=== PATIENT | female | born 1960 | race Caucasian/White ===

== ENCOUNTER 2016-08-02 10:32 | Emergency (ER) | payer SELFPAY ==
[~2016-08-02 10:32] MED LIST: Sodium Chloride 0.9% 1,000 ML BAG ONE
--- NOTE | 2016-08-02 11:27 | RAD ---
SINGLE VIEW OF THE CHEST: COMPARISON: None. HISTORY: Abdominal pain. FINDINGS: Single view of the chest shows a normal sized cardiomediastinal silhouette. There is no evidence of consolidation, mass, or pleural effusion. The bones are unremarkable. IMPRESSION: No evidence of acute cardiopulmonary disease. POS: [facility]
[2016-08-02] MEDS ORDERED: Ondansetron HCl/PF 4 MG/2 ML Vial ONE (11:42)
[2016-08-02] MEDS ORDERED: Metoclopramide HCl 10 MG/2 ML VIAL ONE (11:42)
[2016-08-02] MEDS ORDERED: Ketorolac Tromethamine 30 MG/ML VIAL ONE (11:42)
[2016-08-02 11:59] LABS: ALT (SGPT) 90 U/L (0-55); AST (SGOT) 90 U/L (5-34); Albumin 3.6 g/dL (3.5-5.0); Alkaline Phosphatase 147 U/L (40-150); Amylase 47 U/L (25-125); Anion Gap 17 mmol/L (10-20); BUN (Urea Nitrogen) 11 mg/dL (9.8-20.1); Band 13 % (5-11); Bilirubin, Total 0.7 mg/dL (0.2-1.2); Calc. Creatinine Clearance 0 mL/min (70-130); Calcium 8.7 mg/dL (7.8-10.44); Carbon Dioxide 24 mmol/L (22-29); Chloride 92 mmol/L (98-107); Estimated GFR-MDRD Greater than 90; Globulin 3.3 g/dL (2.4-3.5); Glucose 113 mg/dL (70-105); Lipase 19 U/L (8-78); Lymphocytes 10 % (21-51); MDiff Complete? YES; Mean Corpuscular HGB CONC 33.9 g/dL (32.0-36.0); Mean Corpuscular Hemoglobin 30.6 pg (27.0-31.0); Mean Corpuscular Volume 90.1 fl (81.0-99.0); Monocytes 16 % (0-10); Neutrophil 61 % (42-75); PLT Morphology Comment Appears Adequate; Platelet Count 174 thou/uL (130-400); Potassium 4.1 mmol/L (3.5-5.1); Protein, Total 6.9 g/dL (6.0-8.3); RBC Distribution Width 11.4 % (11.5-14.5); Red Blood Cell (RBC) Count 4.92 mill/uL (4.20-5.40); Sodium 129 mmol/L (136-145); White Blood Cell (WBC) Count 8.6 thou/uL (4.8-10.8)
[2016-08-02 12:21] LABS: Bilirubin Negative (Negative); Blood, Urine Trace (Negative); Clarity Clear (Clear); Glucose, Urine (Dipstick) Negative (Negative); Leukocyte Trace (Negative); Nitrite Positive (Negative); Protein, Urine (Dipstick) 30 mg/dL (Neg-Trace); Urobilinogen 0.2 mg/dL (0.2-1.0)
[2016-08-02 12:24] LABS: Bacteria/HPF 4+ HPF (None Seen); Squamous Epithelial 0-3 HPF (0-3)
[2016-08-02] MEDS ORDERED: Sulfameth/Trimethoprim DS 800-160mg TAB ONE (12:48)
--- NOTE | 2016-08-02 14:20 | PICIS ---
[facility] EMERGENCY RECORD TRIAGE (TueAug 02, 2016 10:43 JPER) PATIENT: NAME: Priyanka Mccauley, AGE: 56, GENDER: female, : Sun 1960, TIME OF GREET: TueAug 02, 2016 10:33, RACE: C, ECODE BILLING MAP: [facility], SSN: [id number], Zip Code: [address], KG WEIGHT: 55.34, , , PERSON ID: [id number], PCP: DO Garza Hillary. (TueAug 02, 2016 10:43 JPER) PHONE: . (12:04) COMPLAINT: SHARP HEAD & ABDOMINAL PAIN,NOT EATING. (TueAug 02, 2016 10:43 JPER) ADMISSION: URGENCY: 3 Urgent, ADMISSION SOURCE: Home, TRANSPORT: Walk-in, BED: ED -05. (TueAug 02, 2016 10:43 JPER) ASSESSMENT: Assessment: HEADACHE X 3 DAYS; NAUSEA; LEFT LOWER BACK PAIN. (TueAug 02, 2016 10:43 JPER) IMMUNIZATIONS: Flu vaccine not up to date, Tetanus not up to date, Pneumococcal vaccine not up to date. (TueAug 02, 2016 10:43 JPER) SIRS SCORING: Heart Rate 55-109 (0), Temp range 96.8-101.1 (0), respiratory rate 12-24 (0), Mental Status altered: no (0). (TueAug 02, 2016 10:43 JPER) TRIAGE SCREENING: Patient denies suicidal ideation, Patient denies presence of domestic violence. (TueAug 02, 2016 10:43 JPER) PROVIDERS: TRIAGE NURSE: Christie Rick RN. (TueAug 02, 2016 10:43 JPER) VITAL SIGNS: BP 118/70, Pulse 84, Resp 20, Temp 98.2, (Oral), O2 Sat 97, on Room Air, Time 08/02/2016 10:39. (10:39 JPER) KNOWN ALLERGIES No Known Drug Allergies CURRENT MEDICATIONS (10:44 JPER) Valium: TABLET : Strength - 2 mg : ORAL Patient Dose: 2 times a day (before meals). hyoscyamine: TABLET : Strength - 0.15 mg : ORAL Patient Dose: 0.125 every 4 hours prn. VITAL SIGNS (10:39 JPER) VITAL SIGNS: BP: 118/70, Pulse: 84, Resp: 20, Temp: 98.2 (Oral), O2 sat: 97 on Room Air, Time: 08/02/2016 10:39. NURSING ASSESSMENT: ABDOMEN (10:50 JPER) CONSTITUTIONAL: Patient arrives, via hospital wheelchair, Gait steady, History obtained from patient, Patient appears, cachectic, Patient cooperative, Patient alert, Oriented to person, place and time, Skin warm, Skin dry, Skin normal in color, Mucous membranes pink, Mucous membranes moist, Patient, Patient complains of ABDOMINAL PAIN / HEADACHE. PAIN: aching pain, burning pain, &a-1R&a+25V*p+0X*x1015H*c202B*c15G*c2P*p-0X&a-25V&a+1R Name: Priyanka Mccauley : 1960 F56 MedRec: [id number] AcctNum: [id number] Prepared: TueAug 02, 2016 14:29 by Interface Page 1 of 11 pMD [facility] EMERGENCY RECORD diffusely. ABDOMEN: Abdomen soft, Associated with nausea. GENITOURINARY FEMALE: Notes: DEFERRED; UA REQUESTED. NOTES: Emotional support needed and given, Patient tolerated procedure well. NURSING PROCEDURE: DISCHARGE NOTE (13:45 MDEB) DISCHARGE: Patient discharged to home, ambulating without assistance, family driving, accompanied by //partner, Summary of Care printed/ provided, Patient requested and was provided an electronic copy of Discharge Instructions, Transition record given to patient, Simple or moderate discharge teaching performed, F/U APPT MEDICATIONS, Prescriptions given and instructions on side effects given, Above person(s) verbalized understanding of discharge instructions and follow-up care, Patient treated and evaluated by physician. BELONGINGS: Belongings remain with patient, Valuables remain with patient. NOTES: Emotional support needed and given, Patient tolerated procedure well. SAFETY: Side rails up, Cart/Stretcher in lowest position, Family at bedside, Call light within reach, Hospital ID band on. NURSING PROCEDURE: IV (11:20 AWAT) PATIENT IDENITIFIER: Patient actively involved in identification process, Patient's identity verified by patient stating name, Patient's identity verified by patient stating date, Patient's identity verified by hospital ID bracelet, Patient's identity verified by family member. IV SITE 1: IV therapy indicated for hydration, IV therapy indicated for medication administration, IV established, to the right forearm, using a 20 gauge catheter, in one attempt, IV site prepped with chloraprep, Saline lock established, Flushed with normal saline (mls): 10, Labs drawn at time of placement, labeled in the presence of the patient and sent to lab, Blood cultures drawn at time of placement, labeled in the presence of the patient and sent to lab. FOLLOW-UP SITE 1: After procedure, sterile transparent dressing applied. NOTES: Patient tolerated procedure well. SAFETY: Side rails up, Cart/Stretcher in lowest position, Family at bedside, Call light within reach, Hospital ID band on, Physician notified of above findings. NURSING PROCEDURE: URINE COLLECTION (12:00 JENI) PATIENT IDENTIFIER: Patient actively involved in identification process, Patient's identity verified by patient stating name, Patient's identity verified by hospital ID braceltuyet. URINE COLLECTION FEMALE: Simple anderson inserted, using an 8 fr catheter, in one attempt, output amount (mL) 100 ML, urine yellow in &a-1R&a+25V*p+0X*j4267C*c202B*c15G*c2P*p-0X&a-25V&a+1R Name: Priyanka Mccauley : 1960 F56 MedRec: [id number] AcctNum: [id number] Prepared: TueAug 02, 2016 14:29 by Interface Page 2 of 11 D [facility] EMERGENCY RECORD color, and clear. NOTES: Emotional support needed and given, Patient tolerated procedure well. ORDER DETAILS Order Name: Amylase, Status: Active, Time: 10:57 08/02/2016, User: FERNANDO, - Ordered for: MD Viera Lloyd, - Entered by: MD Viera Lloyd - TueAug 02, 2016 10:57, - Quantity: 1, Order Name: [facility], Status: Done, Time: 11:08 08/02/2016, User: MANAN, - Ordered for: MD Viera Lloyd, - Entered by: MD Viera Lloyd - TueAug 02, 2016 10:57, - Quantity: 1, Order Name: CBC with Differential, Status: Active, Time: 10:57 08/02/2016, User: FERNANDO, - Ordered for: MD Viera Lloyd, - Entered by: MD Viera Lloyd - TueAug 02, 2016 10:57, - Quantity: 1, Order Name: Comprehensive Metabolic Panel, Status: Active, Time: 10:57 08/02/2016, User: FERNANDO, - Ordered for: MD Viera Lloyd, - Entered by: MD Viera Lloyd - TueAug 02, 2016 10:57, - Quantity: 1, Order Name: Culture, Urine, Status: Active, Time: 10:57 08/02/2016, User: FERNANDO, - Ordered for: MD Viera Lloyd, - Entered by: MD Viera Lloyd - TueAug 02, 2016 10:57, - Quantity: 1, Order Name: Lipase, Status: Active, Time: 10:57 08/02/2016, User: FERNANDO, - Ordered for: MD Viera Lloyd, - Entered by: MD Viera Lloyd - TueAug 02, 2016 10:57, - Quantity: 1, Order Name: SALINE LOCK, Status: Done, Time: 11:34 08/02/2016, User: CLARI, - Ordered for: MD Viera Lloyd, - Entered by: MD Viera Lloyd - TueAug 02, 2016 10:57, - Quantity: 1, Order Name: Urinalysis with Microscopic, Status: Active, Time: 10:57 08/02/2016, User: FERNANDO, - Ordered for: MD Viera Lloyd, - Entered by: MD Viera Lloyd - TueAug 02, 2016 10:57, - Quantity: 1, Order Name: XR Chest 1 View Portable, Status: Active, Time: 11:00 08/02/2016, User: FERNANDO, - Ordered for: MD Viera Lloyd, - Entered by: MD Viera Lloyd - TueAug 02, 2016 11:00, - Quantity: 1. &a-1R&a+25V*p+0X*r9638J*c202B*c15G*c2P*p-0X&a-25V&a+1R Name: Priyanka Mccauley : 1960 F56 MedRec: [id number] AcctNum: [id number] Prepared: TueAug 02, 2016 14:29 by Interface Page 3 of 11 pMD [facility] EMERGENCY RECORD MEDICATION ADMINISTRATION SUMMARY Drug Name: Duramorph (PF), Dose Ordered: 4 mg, Route: IV Push, Status: Given, Time: 12:50 08/02/2016, Drug Name: Septra DS, Dose Ordered: 1 tab(s), Route: Oral, Status: Given, Time: 12:50 08/02/2016, Drug Name: Zofran intravenous, Dose Ordered: 8 mg, Route: IV Push, Status: Given, Time: 11:43 08/02/2016, Drug Name: Toradol injection, Dose Ordered: 30 mg, Route: IV Push, Status: Given, Time: 11:42 08/02/2016, Drug Name: Octamide, Dose Ordered: 20 mg, Route: Oral, Status: Given, Time: 11:40 08/02/2016, Drug Name: *sodium chloride 0.9 % intravenous, Dose Ordered: 1 L, Route: IV Fluid Infusion, Status: Given, Time: 11:20 08/02/2016, *Additional information available in notes, Detailed record available in Medication Service section. MEDICATION SERVICE Duramorph (PF): Order: Duramorph (PF) (morphine sulfate/preservative free) - Dose: 4 mg : IV Push Schedule: Now Ordered by: Donald Viera MD Entered by: Donald Viera MD TueAug 02, 2016 12:45 , Acknowledged by: Trish Morales RN TueAug 02, 2016 12:47 Documented as given by: Trish Morales RN TueAug 02, 2016 12:50 Patient, Medication, Dose, Route and Time verified prior to administration. Amount given: 4 MG, IV SITE #1 IVP, initial medication, Slowly, Catheter placement confirmed via flush prior to administration, IV site without signs or symptoms of infiltration during medication administration, No swelling during administration, No drainage during administration, IV flushed after administration, Correct patient, time, route, dose and medication confirmed prior to administration, Patient advised of actions and side-effects prior to administration, Allergies confirmed and medications reviewed prior to administration, Patient in position of comfort, Side rails up, Cart in lowest position, Family at bedside. Octamide: Order: Octamide (metoclopramide HCl) - Dose: 20 mg : Oral Schedule: Now Ordered by: Donald Viera MD Entered by: Donald Viera MD TueAug 02, 2016 11:02 Documented as given by: Trish Morales RN TueAug 02, 2016 11:40 Patient, Medication, Dose, Route and Time verified prior to administration. Amount given: 20 mg, Site: Medication administered P.O., Correct patient, time, route, dose and medication confirmed prior to administration, Patient advised of actions and side-effects prior to administration, Allergies confirmed and medications reviewed prior to &a-1R&a+25V*p+0X*y2900W*c202B*c15G*c2P*p-0X&a-25V&a+1R Name: Priyanka Mccauley : 1960 F56 MedRec: [id number] AcctNum: [id number] Prepared: TueAug 02, 2016 14:29 by Interface Page 4 of 11 pMD [facility] EMERGENCY RECORD administration, Patient in position of comfort, Side rails up, Cart in lowest position, Family at bedside. Septra DS: Order: Septra DS (sulfamethoxazole/trimethoprim) - Dose: 1 tab(s) : Oral Schedule: Now Ordered by: Donald Viera MD Entered by: Donald Viera MD TueAug 02, 2016 12:29 , Acknowledged by: Trish Morales RN TueAug 02, 2016 12:47 Documented as given by: Trish Morales RN TueAug 02, 2016 12:50 Patient, Medication, Dose, Route and Time verified prior to administration. Amount given: 1 TAB, Site: Medication administered P.O., Correct patient, time, route, dose and medication confirmed prior to administration, Patient advised of actions and side-effects prior to administration, Allergies confirmed and medications reviewed prior to administration, Patient in position of comfort, Side rails up, Cart in lowest position, Family at bedside. sodium chloride 0.9 % intravenous: Order: sodium chloride 0.9 % intravenous (0.9 % sodium chloride) - Dose: 1 L : IV Fluid Infusion Notes: (Bolus) after bolus run NS at 250 ml/h for 2nd liter, then lock Ordered by: Donald Viera MD Entered by: Donald Viera MD TueAug 02, 2016 11:04 Documented as given by: Philip Pruitt RN TueAug 02, 2016 11:20 Patient, Medication, Dose, Route and Time verified prior to administration. Amount given: 1L, IV SITE #1 IV fluids established for hydration, IV SITE #1 into right forearm, IV SITE #1 1st bag hung, amount 1 Liter hung, IV SITE #1 bolus of 1000 ml established, IV SITE #1 Rate of bolus, wide open, IV SITE #1 After bolus completed rate changed to 250 ml/hr, via primary tubing, Catheter placement confirmed via flush prior to administration, IV site without signs or symptoms of infiltration during medication administration, No swelling during administration, No drainage during administration, IV flushed after administration, Correct patient, time, route, dose and medication confirmed prior to administration, Patient advised of actions and side-effects prior to administration, Allergies confirmed and medications reviewed prior to administration, Administered by AWATERS, Patient in position of comfort, Side rails up, Cart in lowest position, Family at bedside. : Follow Up : _IV SITE #1:_, IV fluid infusion discontinued, on TueAug 02, 2016 12:00, 40 minutes, ., Total amount infused: 1000 ML, 2ND LITER HUNG AT 250 ML/HR STOP TIME FOR 2ND LITER AT 13:35 - 400 ML. (13:40 JENI) Toradol injection: Order: Toradol injection (ketorolac tromethamine) - Dose: 30 mg : IV Push Schedule: Now Ordered by: Donald Viera MD Entered by: Donald Viera MD TueAug 02, 2016 11:01 &a-1R&a+25V*p+0X*m9990S*c202B*c15G*c2P*p-0X&a-25V&a+1R Name: Priyanka Mccauley : 1960 F56 MedRec: [id number] AcctNum: [id number] Prepared: TueAug 02, 2016 14:29 by Interface Page 5 of 11 D [facility] EMERGENCY RECORD Documented as given by: Trish Morales RN TueAug 02, 2016 11:42 Patient, Medication, Dose, Route and Time verified prior to administration. Amount given: 30 mg, IV SITE #1 IVP, initial medication, Slowly, Catheter placement confirmed via flush prior to administration, IV site without signs or symptoms of infiltration during medication administration, No swelling during administration, No drainage during administration, IV flushed after administration, Correct patient, time, route, dose and medication confirmed prior to administration, Patient advised of actions and side-effects prior to administration, Allergies confirmed and medications reviewed prior to administration, Patient in position of comfort, Side rails up, Cart in lowest position, Family at bedside. Zofran intravenous: Order: Zofran intravenous (ondansetron HCl) - Dose: 8 mg : IV Push Schedule: Now Ordered by: Donald Viera MD Entered by: Donald Viera MD TueAug 02, 2016 11:01 Documented as given by: Trish Morales RN TueAug 02, 2016 11:43 Patient, Medication, Dose, Route and Time verified prior to administration. Amount given: 8 mg, IV SITE #1 IVP, initial medication, Slowly, Catheter placement confirmed via flush prior to administration, IV site without signs or symptoms of infiltration during medication administration, No swelling during administration, No drainage during administration, IV flushed after administration, Correct patient, time, route, dose and medication confirmed prior to administration, Patient advised of actions and side-effects prior to administration, Allergies confirmed and medications reviewed prior to administration, Patient in position of comfort, Side rails up, Cart in lowest position, Family at bedside. HPI ABDOMINAL PAIN (11:39 LLDO) CHIEF COMPLAINTS: Patient presents for evaluation of abdominal pain, Patient presents for evaluation of abdominal pain for 3 days, mostly in epigastrum and LUQ. also left cva pain. nausea with some vomiting. headache. not sure about any fever but doesn't think so. HISTORIAN: History provided by patient, History provided by patient's spouse, has not been eating or drinking. LOCATION FEMALE: Symptoms are localized. QUALITY: Pain is dull in nature. SEVERITY: Maximum severity of symptoms moderate, Currently symptoms are moderate. TIME COURSE: Gradual onset of symptoms, Symptoms are constant, Symptoms are worsening. ASSOCIATED WITH FEMALE: Associated with flank pain, on the left, No associated hematemesis, Associated with loss of appetite, Associated with nausea. RELIEVED BY: Patient's condition relieved by nothing. EXACERBATED BY: Patient's condition &a-1R&a+25V*p+0X*h1575N*c202B*c15G*c2P*p-0X&a-25V&a+1R Name: Priyanka Mccauley : 1960 F56 MedRec: [id number] AcctNum: [id number] Prepared: TueAug 02, 2016 14:29 by Interface Page 6 of 11 pMD [facility] EMERGENCY RECORD exacerbated by movement. RISK FACTORS FEMALE: No ectopic risk factors present, Abdominal aortic aneurysm risk factors, include age over 40 years, Coronary artery disease risk factors, include smoking. ROS CONSTITUTIONAL: Negative constitutional review of systems, Historian reports fatigue. (11:43 LLDO) EYES: Negative eye review of systems, Historian denies eye pain, denies eye redness, denies eye discharge. (11:46 LLDO) ENT: Negative ears, nose, throat review of systems, Historian denies epistaxis, denies rhinorrhea, denies sinus pain, denies sore throat. (11:46 LLDO) CARDIOVASCULAR: Negative cardiovascular review of systems, Historian denies chest pain, no radiation, Historian denies diaphoresis, denies syncope. (11:46 LLDO) RESPIRATORY: Negative respiratory review of systems, Historian denies cough, denies shortness of breath, denies sputum. (11:46 LLDO) GI: Historian reports abdominal pain, reports anorexia, reports appetite changes, denies constipation, denies diarrhea, denies hematemesis, denies hematochezia, denies jaundice, denies melena, reports nausea, denies stool changes. (11:43 LLDO) GENITOURINARY FEMALE: Negative genitourinary review of systems, Historian denies dysuria, denies frequency, denies urgency. (11:46 LLDO) MUSCULOSKELETAL: Negative musculoskeletal review of systems, Historian denies arthralgias, denies back pain, denies injury, denies myalgias, denies neck pain. (11:46 LLDO) SKIN: Negative skin review of systems, Historian denies cellulitis, denies rash, denies skin changes, denies skin lesions. (11:46 LLDO) NEUROLOGIC: Negative neurologic review of systems, Historian denies confusion, denies dizziness, denies focal weakness, denies mental status changes. (11:46 LLDO) HEMO/LYMPHATIC: Normal hematologic/lymphatic system review, Historian denies abnormal blood clotting, denies gum bleeding, denies petechiae. (11:46 LLDO) ALLERGIC/IMMUNOLOGIC: Normal allergy/immunologic system review, Historian denies eczema, denies environmental allergies, denies food allergies. (11:46 LLDO) PSYCHIATRIC: Negative psychiatric review of systems, Historian denies alcohol abuse, denies anxiety, denies depression, denies drug abuse, denies hallucinations. (11:46 LLDO) NOTES: All systems reviewed, negative except as described above. (11:43 LLDO) PAST MEDICAL HISTORY MEDICAL HISTORY: Past medical history includes gastrointestinal disease, SPASTIC COLON. (TueAug 02, &a-1R&a+25V*p+0X*t8115Z*c202B*c15G*c2P*p-0X&a-25V&a+1R Name: Priyanka Mccauley : 1960 F56 MedRec: [id number] AcctNum: [id number] Prepared: TueAug 02, 2016 14:29 by Interface Page 7 of 11 pMD [facility] EMERGENCY RECORD 2017 10:43 JPER) FEMALE SURGICAL HISTORY: Surgical history of appendectomy. (TueAug 02, 2016 10:43 JPER) PSYCHIATRIC HISTORY: Notes: DENIES. (TueAug 02, 2016 10:43 JPER) SOCIAL HISTORY: Patient denies alcohol use, Patient denies drug use, Patient currently uses tobacco, smokes cigarettes, Patient smokes 1 pack per day. (TueAug 02, 2016 10:43 JPER) NOTES: Nursing records reviewed, Agree with nursing records, Medication list reviewed. (11:46 LLDO) PHYSICAL EXAM CONSTITUTIONAL: Vital Signs Reviewed, Patient afebrile, Pulse normal, Blood pressure normal, Respiratory rate normal, Patient appears, uncomfortable, Patient appears, in moderate pain distress, Patient alert and oriented to person, place and time, Nursing notes reviewed. (11:45 LLDO) HEAD: Head exam normal, Head exam included findings of head atraumatic, normocephalic. (11:46 LLDO) EYES: Eye exam normal, Eye exam included findings of eyelids normal to inspection, Pupils equally round and reactive to light, Extraocular muscles intact. (11:46 LLDO) ENT: ENT exam normal, Ear exam normal, Nose exam normal. (11:46 LLDO) NECK: Neck exam normal, Neck exam included findings of normal range of motion, Trachea midline, no meningeal signs, no tenderness. (11:46 LLDO) RESPIRATORY CHEST: Respiratory and chest exam normal, Respiratory exam included findings of, Chest exam included findings of chest movement symmetrical, Chest expansion equal. (11:46 LLDO) CARDIOVASCULAR: Cardiovascular assessment normal, Cardiovascular exam included findings of heart rate regular rate and rhythm, Heart sounds normal. (11:46 LLDO) ABDOMEN FEMALE: Abdominal exam included findings of abdomen tender, to the left upper quadrant, moderate intensity, Bowel sounds, hyperactive, Liver normal, Spleen normal, no distension, no mass, no pulsatile masses, no peritoneal signs. (11:45 LLDO) BACK: Back exam included findings of normal inspection, range of motion normal, Tenderness, Costovertebral angle tenderness, on the left, no Scoliosis, no pain with straight leg raise. (11:45 LLDO) UPPER EXTREMITY: Upper extremity exam normal, Upper extremity exam included findings of inspection normal, Range of motion normal. (11:46 LLDO) LOWER EXTREMITY: Lower extremity exam normal, Lower extremity exam included findings of inspection normal, Range of motion normal. (11:46 LLDO) &a-1R&a+25V*p+0X*d6761Y*c202B*c15G*c2P*p-0X&a-25V&a+1R Name: Priyanka Mccauley : 1960 F56 MedRec: [id number] AcctNum: [id number] Prepared: TueAug 02, 2016 14:29 by Interface Page 8 of 11 pMD [facility] EMERGENCY RECORD NEURO: Neuro exam normal, Neuro exam findings include patient oriented to person, place and time, Speech normal, [place] coma scale 15. (11:46 LLDO) SKIN: Skin exam normal, Skin exam included findings of skin warm, dry, and normal in color, no rash. (11:46 LLDO) PSYCHIATRIC: Psychiatric exam normal, Psychiatric exam included findings of patient oriented to person place and time, Normal affect. (11:46 LLDO) EVENTS TRANSFER: Triage to Emergency Main ED -05. (TueAug 02, 2016 10:43 JPER) Emergency Main ED -05 to Holding. (14:12 MDEB) Removed from Emergency Holding. (14:20 JPER) PROBLEM LIST No recorded problems DIAGNOSIS (13:38 LLDO) FINAL: PRIMARY: UTI SITE NOT SPECIFIED. DISPOSITION PATIENT: Disposition Type: Discharge, Disposition: *Discharge Home. (13:38 LLDO) Patient left the department. (14:20 JPER) INSTRUCTION (13:40 LLDO) DISCHARGE: UTI PYELONEPHRITIS FEMALE ADULT. FOLLOWUP: DO Garza Hillary, [facility], [address] [place] [id number], , Follow up with Primary Care Physician in 10-14 days. SPECIAL: Follow-up with your PCP. PRESCRIPTION (13:39 LLDO) Septra DS: TABLET : 800 mg-160 mg : ORAL : Quantity: 1 Unit: tab(s) Route: ORAL Schedule: 2 times a day (before meals) Dispense: 20 Unit: tab(s) May substitute. Refills: No Refills . Tylenol-Codeine #3: TABLET : 300 mg-30 mg : ORAL : Quantity: 1-2 Unit: tab(s) Route: ORAL Schedule: every 4 hours prn Dispense: 30 Unit: tab(s) May substitute. Refills: No Refills . Zofran ODT: TABLET, RAPID DISSOLVE : 4 mg : ORAL : Quantity: 1-2 Unit: tab(s) Route: ORAL Schedule: every 6 hours PRN Dispense: 20 Unit: tab(s) May substitute. Refills: 1 . NOTES: DISSOLVE UNDER TONGUE. IMAGING *DISCHARGE INSTRUCTIONS RECEIPT: Image captured from scanner. &a-1R&a+25V*p+0X*e7071Z*c202B*c15G*c2P*p-0X&a-25V&a+1R Name: Priyanka Mccauley : 1960 F56 MedRec: [id number] AcctNum: [id number] Prepared: TueAug 02, 2016 14:29 by Interface Page 9 of 11 pMD [facility] EMERGENCY RECORD (13:46 MDEB) *SUPPLY CHARGE SHEET: Image captured from scanner. (13:47 MDEB) VITAL SIGNS: Image captured from scanner. (14:06 MDEB) ADMIN (13:40 DO) DIGITAL SIGNATURE: MD Viera Lloyd. RESULTS RADIOLOGY: XR Chest 1 View Portable Observe DT: TueAug 02, 2016 11:02, CXRP SINGLE VIEW OF THE CHEST: COMPARISON: None. HISTORY: Abdominal pain. FINDINGS: Single view of the chest shows a normal sized cardiomediastinal silhouette. There is no evidence of consolidation, mass, or pleural effusion. The bones are unremarkable. IMPRESSION: No evidence of acute cardiopulmonary disease. POS: [facility] . (12:18 MDEB) LABORATORY: Lipase Collection DT: TueAug 02, 2016 11:31, Lipase 19 U/L, Range (8-78). (12:18 MDEB) Amylase Collection DT: TueAug 02, 2016 11:31, Amylase 47 U/L, Range (25-125). (12:18 MDEB) Comprehensive Metabolic Panel Collection DT: TueAug 02, 2016 11:31, *Sodium 129 - L mmol/L, Range (136-145), Potassium 4.1 mmol/L, Range (3.5-5.1), *Chloride 92 - L mmol/L, Range (98-107), Carbon Dioxide 24 mmol/L, Range (22-29), Anion Gap 17 mmol/L, Range (10-20), BUN (Urea Nitrogen) 11 mg/dL, Range (9.8-20.1), Creatinine 0.62 mg/dL, Range (0.6-1.1), Estimated GFR-MDRD Greater than 90 , Reference Range for Estimated GFR: Greater than 90, mL/min/1.73 m2 NOTE: The MDRD equation has not been validated for use, with the elderly (over 70 years of age), women, patients with, serious comorbid condition or persons with extremes of &a-1R&a+25V*p+0X*[id number]*c202B*c15G*c2P*p-0X&a-25V&a+1R Name: Priyanka Mccauley : 1960 F56 MedRec: [id number] AcctNum: [id number] Prepared: TueAug 02, 2016 14:29 by Interface Page 10 of 11 pMD [facility] EMERGENCY RECORD body size, muscle, mass, or nutritional status. , *Glucose 113 - H mg/dL, Range (70-105), Calcium 8.7 mg/dL, Range (7.8-10.44), Bilirubin, Total 0.7 mg/dL, Range (0.2-1.2), Protein, Total 6.9 g/dL, Range (6.0-8.3), NOTE: Plasma values are generally 0.3 to 0.5 g/dL higher than serum values, due to the presence of fibrinogen. , Albumin 3.6 g/dL, Range (3.5-5.0), Globulin 3.3 g/dL, Range (2.4-3.5), *Alb/Glob Ratio 1.1 - L g/dL, Range (1.2-2.2), Alkaline Phosphatase 147 U/L, Range (40-150), *AST (SGOT) 90 - H U/L, Range (5-34), *ALT (SGPT) 90 - H U/L, Range (0-55). (12:18 JENI) CBC with Differential Collection DT: TueAug 02, 2016 11:31, White Blood Cell (WBC) Count 8.6 thou/uL, Range (4.8-10.8), Red Blood Cell (RBC) Count 4.92 mill/uL, Range (4.20-5.40), Hemoglobin 15.0 g/dL, Range (12.0-16.0), Hematocrit 44.4 %, Range (36.0-47.0), Mean Corpuscular Volume 90.1 fl, Range (81.0-99.0), Mean Corpuscular Hemoglobin 30.6 pg, Range (27.0-31.0), Mean Corpuscular HGB CONC 33.9 g/dL, Range (32.0-36.0), *RBC Distribution Width 11.4 - L %, Range (11.5-14.5), Platelet Count 174 thou/uL, Range (130-400), Mean Platelet Volume 10.0 fL, Range (7.4-10.4), Neutrophil 61 %, Range (42-75), *Band 13 - H %, Range (5-11), *Lymphocytes 10 - L %, Range (21-51), *Monocytes 16 - H %, Range (0-10), PLT Morphology Comment Appears Adequate . (12:18 MDEB) Urinalysis with Microscopic Collection DT: TueAug 02, 2016 12:20, Color Yellow , Range (Yellow), Clarity Clear , Range (Clear), Specific [place], Urine 1.020 , Range (1.005-1.030), pH, Urine 7.0 , Range (5.0-9.0), *Leukocyte Trace - H , Range (Negative), *Nitrite Positive - H , Range (Negative), *Protein, Urine (Dipstick) 30 - H mg/dL, Range (Neg-Trace), Glucose, Urine (Dipstick) Negative mg/dL, Range (Negative), *Ketone, Urine 40 - H mg/dL, Range (Negative), Urobilinogen 0.2 mg/dL, Range (0.2-1.0), Bilirubin Negative , Range (Negative), *Blood, Urine Trace - H , Range (Negative), RBC/HPF 4-6 HPF, Range (0-3), *WBC/HPF 11-20 - H HPF, Range (0-3), Squamous Epithelial 0-3 HPF, Range (0-3), *Bacteria/HPF 4+ - H HPF, Range (None Seen). (13:31 MDEB) Agarwal: THOMAST=MARIANO Pruitt, Philip JPER=MARIANO Rick, Christie KING=MD Aylin, Donald MDEB=MARIANO Morales, Trish &a-1R&a+25V*p+0X*q3001J*c202B*c15G*c2P*p-0X&a-25V&a+1R Name: Priyanka Mccauley : 1960 F56 MedRec: [id number] AcctNum: [id number] Prepared: TueAug 02, 2016 14:29 by Interface Page 11 of 11 pMD [facility] MEDICATION RECONCILIATION You were seen in the Emergency Department on: TueAug 02, 2016 KNOWN ALLERGIES No Known Drug Allergies MEDICATIONS GIVEN WHILE IN THE EMERGENCY DEPARTMENT Toradol injection (ketorolac tromethamine) - Dose: 30 milligram(s) : IV Push Zofran intravenous (ondansetron HCl) - Dose: 8 milligram(s) : IV Push Octamide (metoclopramide HCl) - Dose: 20 milligram(s) : Oral sodium chloride 0.9 % intravenous (0.9 % sodium chloride) - Dose: 1 liter(s) : IV Fluid Infusion Septra DS (sulfamethoxazole/trimethoprim) - Dose: 1 tab(s) : Oral Duramorph (PF) (morphine sulfate/preservative free) - Dose: 4 milligram(s) : IV Push HOME MEDICATIONS CONTINUE PRESCRIBED hyoscyamine : TABLET : Strength - 0.15 mg : ORAL Continue as prescribed Patient had been takin.125 every 4 hours prn. Valium : TABLET : Strength - 2 mg : ORAL Continue as prescribed Patient had been takin times a day (before meals). Notes from the emergency department Reviewed with family Reviewed with patient PRESCRIPTIONS (3) Printed (3) Septra DS : TABLET : 800 mg-160 mg : ORAL Quantity: 1, Unit: tab(s), Route: ORAL, Schedule: 2 times a day (before meals), Dispense: 20 Unit: tab(s) Tylenol-Codeine #3 : TABLET : 300 mg-30 mg : ORAL Quantity: 1-2, Unit: tab(s), Route: ORAL, Schedule: every 4 hours prn, Dispense: 30 Unit: tab(s) &a-1R&a+25V*p+0X*f9045T*c202B*c15G*c2P*p-0X&a-25V&a+1R Name: Priyanka Mccauley : 1960 F56 MedRec: [id number] AcctNum: [id number] Prepared: TueAug 02, 2016 14:29 by Interface pMD [facility]
== END 2016-08-02 13:45 | disposition home or self-care (01) ==
LOC: MADERS 10:32
DX: N39.0 Urinary tract infection, site not specified (principal); F17.210 Nicotine dependence, cigarettes, uncomplicated; Z79.899 Other long term (current) drug therapy
CPT/HCPCS: 51702; 71010; 80053; 81001; 82150; 83690; 85025; 87077; 87086; 87186; 96361; 96374; 96375; A4353; J1885; J2270; J2405; J2765; J7050

== ENCOUNTER 2023-09-08 10:17 | Emergency (ER) | payer SELFPAY ==
[2023-09-08] MEDS ORDERED: Ipratropium/Albuterol 3 ML NEB ONE ×2 (10:34→11:37)
[2023-09-08] MEDS ORDERED: methylPREDNISolone Sod Succ/PF 125 MG/2 ML VIAL ONE (10:40)
[2023-09-08 11:05] LABS: #Basophils 0.1 thou/uL (0.0-0.2); #Eosinphils 0.1 thou/uL (0.0-0.7); #Lymphocytes 1.7 thou/uL (1.20-3.40); #Monocytes 0.6 thou/uL (0.11-0.59); #Neutrophils 5.4 thou/uL (1.40-6.50); %Basophils 1.1 % (0.0-1.0); %Eosinophils 1.6 % (0.0-10.0); %Lymphocytes 21.5 % (21.0-51.0); %Neutrophils 67.8 % (42.0-75.0); Hematocrit 45.8 % (36.0-47.0); Hemoglobin 15.2 g/dL (12.0-16.0); Mean Corpuscular HGB CONC 33.2 g/dL (32.0-36.0); Mean Corpuscular Hemoglobin 30.9 pg (27.0-31.0); Mean Platelet Volume 7.9 fL (7.4-10.4); Platelet Count 214 10x3/uL (130-400); RBC Distribution Width 11.9 % (11.5-14.5); Red Blood Cell (RBC) Count 4.92 mill/uL (4.20-5.40)
[2023-09-08 11:23] LABS: ALT (SGPT) 28 U/L (8-55); AST (SGOT) 38 U/L (5-34); Albumin 4.3 g/dL (3.4-4.8); Alkaline Phosphatase 97 U/L (40-110); Anion Gap 13 mmol/L (10-20); BUN (Urea Nitrogen) 10 mg/dL (9.8-20.1); Bilirubin, Total 0.8 mg/dL (0.2-1.2); Calc. Creatinine Clearance 0 mL/min (70-130); Calcium 9.1 mg/dL (7.8-10.44); Carbon Dioxide 22 mmol/L (23-31); Chloride 101 mmol/L (98-107); Estimated GFR 83; Globulin 3.9 g/dL (2.4-3.5); Glucose 121 mg/dL (80-115); Potassium 3.8 mmol/L (3.5-5.1); Protein, Total 8.2 g/dL (5.8-8.1); Sodium 132 mmol/L (136-145)
[2023-09-08 11:27] LABS: Troponin I 0.022 ng/mL (< 0.028)
== END 2023-09-08 12:18 | disposition home or self-care (01) ==
LOC: MADERS 10:17
DX: J44.1 Chronic obstructive pulmonary disease with (acute) exacerbation (principal); J11.1 Influenza due to unidentified influenza virus with other respiratory manifestations; F17.210 Nicotine dependence, cigarettes, uncomplicated
CPT/HCPCS: 71045; 80053; 83735; 83880; 84484; 85025; 87804; 93005; 96374; J2930; J7620